=== PATIENT | male | born 1965 | race Two or more races ===

== ENCOUNTER 2023-06-14 17:55 | Inpatient (IN) | payer OTHER ==
[2023-06-14 18:44] VITALS: BMI 25.0
[2023-06-14] MEDS ORDERED: NICOTINE POLACRILEX 2 MG GUM BUC PRN (19:21)
[2023-06-14] MEDS ORDERED: ACETAMINOPHEN 325 MG TABLET (FP) PO PRN (19:21)
[2023-06-14] MEDS ORDERED: IBUPROFEN 400 MG TABLET (FP) PO PRN (19:21)
[2023-06-14] MEDS ORDERED: NALOXONE HCL 0.4 MG/ML VIAL IM PRN (19:21)
[2023-06-14] MEDS ORDERED: NALOXONE HCL (KLOXXADO) 8 MG SPRAY NS PRN (19:21)
[2023-06-14] MEDS ORDERED: POLYETHYLENE GLYCOL (HEALTHYLAX) 3350 17 GM PACKET PO PRN (19:21)
[2023-06-14] MEDS ORDERED: MAGNESIUM HYDROX 2400MG/30ML ORAL SUSPENSION 30 ML CUP PO PRN (19:21)
[2023-06-14] MEDS ORDERED: guaiFENesin 600 MG TABLET.ER (FP) PO PRN (19:21)
[2023-06-14] MEDS ORDERED: LOPERAMIDE HCL 2 MG CAPSULE PO PRN (19:21)
[2023-06-14] MEDS ORDERED: BENZOCAINE/MENTHOL (CHLORASEPTIC ) LOZENGE MM PRN (19:21)
[2023-06-14] MEDS ORDERED: COLLOIDAL OATMEAL 1 BAR EACH TP PRN (19:21)
[2023-06-14] MEDS ORDERED: MAG HYDROX/AL HYDROX/SIMETH 30 ML UNIT-DOSE CUP PO PRN (19:21)
[2023-06-14] MEDS ORDERED: BENZONATATE 200 MG CAPSULE PO PRN (19:21)
[2023-06-14] MEDS ORDERED: TUBERCULIN PPD 5 TU/0.1ML SYRINGE (IN PATIENT USE ONLY) ID ONE (23:23)
[2023-06-14] MEDS ORDERED: TUBERCULIN PPD 5 TU/0.1ML VIAL ID ONE (23:42)
[2023-06-14] MEDS: MELATONIN 5 MG TABLETS PO SCH (23:53)
[2023-06-14] MEDS: THIAMINE HCL 100 MG TABLET (FP) PO SCH (23:53)
[2023-06-15] MEDS ORDERED: cloNIDine HCL 0.1 MG TABLET PO ONE (06:25)
[2023-06-15] MEDS: INSULIN ASPART SLIDING SCALE (NOVOLOG) 1 VIAL SQ SCH ×2 (06:51→16:49)
[2023-06-15] MEDS: hydrOXYzine PAMOATE 25 MG CAPSULE (FP) PO PRN (06:53)
[2023-06-15] MEDS ORDERED: methaDONE HCL 10 MG TABLET PO SCH (09:00)
[2023-06-15] MEDS ORDERED: LISINOPRIL 20 MG TABLET PO SCH (10:00)
[2023-06-15] MEDS: LISINOPRIL 10 MG TABLET PO SCH (10:25)
[2023-06-15] MEDS: PRENATAL VITAMINS W/ FOLIC ACID TABLET (FP) PO SCH (10:25)
[2023-06-15] MEDS ORDERED: NICOTINE POLACRILEX 4 MG GUM BUC PRN (10:27)
[2023-06-15] MEDS: methaDONE 80 MG, methaDONE 20 MG PO SCH (10:27)
[2023-06-15] MEDS ORDERED: BACLOFEN 10 MG TABLET (FP) PO SCH (10:28)
[2023-06-15] MEDS: NICOTINE 21 MG/24 HOURS TOPICAL PATCH TD SCH (10:29)
[2023-06-15 10:44] LABS: HEMOGLOBIN 13.1 GM/dL (11.7-16.9); MCH 29.7 pg (25.7-33.7); MCHC 33.6 g/dl (32.0-35.9); MEAN CELL VOLUME 88.5 fl (80-96); MEAN PLT VOLUME 8.4 fl (7.5-11.1); PLATELET COUNT 217 10^3/uL (134-434); RBC 4.41 M/mm3 (4.00-5.60); WHITE BLOOD COUNT 4.5 K/mm3 (4.0-10.0)
[2023-06-15] MEDS: metFORMIN HCL 500 MG TABLET (FP) PO SCH ×2 (11:08→16:50)
[2023-06-15 11:20] LABS: CHLORIDE 107 mmol/L (98-107); SODIUM 140 mmol/L (136-145)
[2023-06-15 11:32] LABS: CALCIUM 8.4 mg/dL (8.5-10.1)
[2023-06-15 11:33] LABS: ALBUMIN 3.3 g/dl (3.4-5.0); ANION GAP 4 mmol/L (4-13); BLOOD UREA NITROGEN 10.7 mg/dL (7-18); CO2 29 mmol/L (21-32); GLUCOSE,RANDOM 79 mg/dL (74-106)
[2023-06-15 11:37] LABS: CREATININE 0.6 mg/dL (0.55-1.3); SGOT/AST 37 U/L (15-37); SGPT/ALT 26 U/L (13-61)
[2023-06-15 11:38] LABS: ALK PHOS 102 U/L (45-117); BILIRUBIN,TOTAL 0.7 mg/dL (0.2-1); TOT PROT 7.5 g/dl (6.4-8.2)
[2023-06-15] MEDS: cloNIDine HCL 0.1 MG TABLET PO SCH ×2 (12:02→21:22)
[2023-06-15 21:16] LABS: URINE APPEARANCE CLOUDY; URINE BILIRUBIN 1+ (NEGATIVE); URINE COLOR DK YELLOW; URINE GLUCOSE (UA) NEGATIVE (NEGATIVE); URINE KETONE TRACE (NEGATIVE); URINE LEUK ESTERASE NEGATIVE (NEGATIVE); URINE NITRITE NEGATIVE (NEGATIVE); URINE PROTEIN NEGATIVE (NEGATIVE)
[2023-06-15] MEDS: MELATONIN 5 MG TABLETS PO SCH (21:21)
[2023-06-15] MEDS: THIAMINE HCL 100 MG TABLET (FP) PO SCH (21:21)
[2023-06-16] MEDS: metFORMIN HCL 500 MG TABLET (FP) PO SCH ×2 (06:09→16:36)
[2023-06-16] MEDS: methaDONE 80 MG, methaDONE 20 MG PO SCH (06:09)
[2023-06-16] MEDS: INSULIN ASPART SLIDING SCALE (NOVOLOG) 1 VIAL SQ SCH ×2 (06:11→16:46)
[2023-06-16] MEDS: LISINOPRIL 10 MG TABLET PO SCH (09:46)
[2023-06-16] MEDS: NICOTINE 21 MG/24 HOURS TOPICAL PATCH TD SCH (09:46)
[2023-06-16] MEDS: cloNIDine HCL 0.1 MG TABLET PO SCH ×2 (09:46→21:35)
[2023-06-16] MEDS: PRENATAL VITAMINS W/ FOLIC ACID TABLET (FP) PO SCH (09:46)
[2023-06-16] MEDS ORDERED: LISINOPRIL 10 MG TABLET PO ONE (12:30)
[2023-06-16] MEDS: MELATONIN 5 MG TABLETS PO SCH (21:33)
[2023-06-16] MEDS: THIAMINE HCL 100 MG TABLET (FP) PO SCH (21:34)
[2023-06-17] MEDS: methaDONE 80 MG, methaDONE 20 MG PO SCH (06:06)
[2023-06-17] MEDS: metFORMIN HCL 500 MG TABLET (FP) PO SCH ×2 (06:06→16:47)
[2023-06-17] MEDS: INSULIN ASPART SLIDING SCALE (NOVOLOG) 1 VIAL SQ SCH ×2 (06:08→16:47)
[2023-06-17] MEDS: cloNIDine HCL 0.1 MG TABLET PO SCH ×2 (10:55→21:10)
[2023-06-17] MEDS: NICOTINE 21 MG/24 HOURS TOPICAL PATCH TD SCH (10:55)
[2023-06-17] MEDS: PRENATAL VITAMINS W/ FOLIC ACID TABLET (FP) PO SCH (10:55)
[2023-06-17] MEDS: LISINOPRIL 10 MG TABLET PO SCH (10:55)
[2023-06-17] MEDS: MELATONIN 5 MG TABLETS PO SCH (21:10)
[2023-06-17] MEDS: THIAMINE HCL 100 MG TABLET (FP) PO SCH (21:10)
[2023-06-18] MEDS: metFORMIN HCL 500 MG TABLET (FP) PO SCH ×2 (06:06→16:27)
[2023-06-18] MEDS: methaDONE 80 MG, methaDONE 20 MG PO SCH (06:06)
[2023-06-18] MEDS: INSULIN ASPART SLIDING SCALE (NOVOLOG) 1 VIAL SQ SCH ×2 (06:07→16:28)
[2023-06-18] MEDS: PRENATAL VITAMINS W/ FOLIC ACID TABLET (FP) PO SCH (09:38)
[2023-06-18] MEDS: NICOTINE 21 MG/24 HOURS TOPICAL PATCH TD SCH (09:39)
[2023-06-18] MEDS: cloNIDine HCL 0.1 MG TABLET PO SCH ×2 (09:39→21:25)
[2023-06-18] MEDS: LISINOPRIL 10 MG TABLET PO SCH (09:39)
[2023-06-18] MEDS: MELATONIN 5 MG TABLETS PO SCH (21:25)
[2023-06-18] MEDS: THIAMINE HCL 100 MG TABLET (FP) PO SCH (21:25)
[2023-06-18] MEDS: IBUPROFEN 600 MG TABLET (FP) PO PRN (21:26)
[2023-06-19] MEDS: metFORMIN HCL 500 MG TABLET (FP) PO SCH ×2 (06:13→16:27)
[2023-06-19] MEDS: methaDONE 80 MG, methaDONE 20 MG PO SCH (06:14)
[2023-06-19] MEDS: hydrOXYzine PAMOATE 25 MG CAPSULE (FP) PO PRN (06:15)
[2023-06-19] MEDS: INSULIN ASPART SLIDING SCALE (NOVOLOG) 1 VIAL SQ SCH ×2 (06:15→16:28)
[2023-06-19] MEDS: NICOTINE 21 MG/24 HOURS TOPICAL PATCH TD SCH (10:05)
[2023-06-19] MEDS: PRENATAL VITAMINS W/ FOLIC ACID TABLET (FP) PO SCH (10:05)
[2023-06-19] MEDS: LISINOPRIL 10 MG TABLET PO SCH (10:05)
[2023-06-19] MEDS: IBUPROFEN 600 MG TABLET (FP) PO PRN (16:27)
[2023-06-19] MEDS: MELATONIN 5 MG TABLETS PO SCH (21:09)
[2023-06-19] MEDS: THIAMINE HCL 100 MG TABLET (FP) PO SCH (21:09)
[2023-06-20] MEDS: methaDONE 80 MG, methaDONE 20 MG PO SCH (06:30)
[2023-06-20] MEDS: metFORMIN HCL 500 MG TABLET (FP) PO SCH ×2 (06:30→16:28)
[2023-06-20] MEDS: IBUPROFEN 600 MG TABLET (FP) PO PRN ×2 (06:31→21:20)
[2023-06-20] MEDS: NICOTINE 21 MG/24 HOURS TOPICAL PATCH TD SCH (09:49)
[2023-06-20] MEDS: LISINOPRIL 10 MG TABLET PO SCH (09:49)
[2023-06-20] MEDS: PRENATAL VITAMINS W/ FOLIC ACID TABLET (FP) PO SCH (09:49)
[2023-06-20] MEDS: INSULIN ASPART SLIDING SCALE (NOVOLOG) 1 VIAL SQ SCH ×2 (10:05→16:29)
[2023-06-20] MEDS: MELATONIN 5 MG TABLETS PO SCH (21:20)
[2023-06-20] MEDS: THIAMINE HCL 100 MG TABLET (FP) PO SCH (21:20)
[2023-06-21] MEDS: methaDONE 80 MG, methaDONE 20 MG PO SCH (06:14)
[2023-06-21] MEDS: INSULIN ASPART SLIDING SCALE (NOVOLOG) 1 VIAL SQ SCH ×2 (06:14→16:27)
[2023-06-21] MEDS: IBUPROFEN 600 MG TABLET (FP) PO PRN ×2 (06:15→21:16)
[2023-06-21] MEDS: metFORMIN HCL 500 MG TABLET (FP) PO SCH ×2 (06:15→16:25)
[2023-06-21] MEDS: hydrOXYzine PAMOATE 25 MG CAPSULE (FP) PO PRN (06:16)
[2023-06-21] MEDS: PRENATAL VITAMINS W/ FOLIC ACID TABLET (FP) PO SCH (10:20)
[2023-06-21] MEDS: NICOTINE 21 MG/24 HOURS TOPICAL PATCH TD SCH (10:21)
[2023-06-21] MEDS: LISINOPRIL 10 MG TABLET PO SCH (10:21)
[2023-06-21] MEDS: LIDOCAINE 4% PATCH TP SCH (16:27)
[2023-06-21] MEDS: MELATONIN 5 MG TABLETS PO SCH (21:15)
[2023-06-21] MEDS: LIDOCAINE PATCH REMOVAL MC SCH (21:15)
[2023-06-21] MEDS: THIAMINE HCL 100 MG TABLET (FP) PO SCH (21:15)
[2023-06-21] MEDS: BACLOFEN 10 MG TABLET (FP) PO SCH (21:16)
[2023-06-22] MEDS: metFORMIN HCL 500 MG TABLET (FP) PO SCH ×2 (06:29→16:35)
[2023-06-22] MEDS: methaDONE 80 MG, methaDONE 20 MG PO SCH (06:29)
[2023-06-22] MEDS: INSULIN ASPART SLIDING SCALE (NOVOLOG) 1 VIAL SQ SCH ×2 (06:44→16:47)
[2023-06-22] MEDS: PRENATAL VITAMINS W/ FOLIC ACID TABLET (FP) PO SCH (09:35)
[2023-06-22] MEDS: BACLOFEN 10 MG TABLET (FP) PO SCH ×2 (09:35→21:28)
[2023-06-22] MEDS: LISINOPRIL 10 MG TABLET PO SCH (09:35)
[2023-06-22] MEDS: LIDOCAINE 4% PATCH TP SCH (09:37)
[2023-06-22] MEDS: NICOTINE 21 MG/24 HOURS TOPICAL PATCH TD SCH (09:37)
[2023-06-22] MEDS: LIDOCAINE PATCH REMOVAL MC SCH (21:27)
[2023-06-22] MEDS: IBUPROFEN 600 MG TABLET (FP) PO PRN (21:28)
[2023-06-22] MEDS: THIAMINE HCL 100 MG TABLET (FP) PO SCH (21:28)
[2023-06-22] MEDS: MELATONIN 5 MG TABLETS PO SCH (21:28)
[2023-06-23] MEDS: methaDONE 80 MG, methaDONE 20 MG PO SCH (06:50)
[2023-06-23] MEDS: metFORMIN HCL 500 MG TABLET (FP) PO SCH ×2 (06:51→16:23)
[2023-06-23] MEDS: hydrOXYzine PAMOATE 25 MG CAPSULE (FP) PO PRN (06:51)
[2023-06-23] MEDS: INSULIN ASPART SLIDING SCALE (NOVOLOG) 1 VIAL SQ SCH ×2 (06:56→16:23)
[2023-06-23] MEDS: NICOTINE 21 MG/24 HOURS TOPICAL PATCH TD SCH (09:45)
[2023-06-23] MEDS: PRENATAL VITAMINS W/ FOLIC ACID TABLET (FP) PO SCH (09:45)
[2023-06-23] MEDS: LISINOPRIL 10 MG TABLET PO SCH (09:45)
[2023-06-23] MEDS: BACLOFEN 10 MG TABLET (FP) PO SCH ×2 (09:46→21:10)
[2023-06-23] MEDS: LIDOCAINE 4% PATCH TP SCH (09:46)
[2023-06-23] MEDS: IBUPROFEN 600 MG TABLET (FP) PO PRN ×2 (09:47→21:11)
[2023-06-23] MEDS: MELATONIN 5 MG TABLETS PO SCH (21:10)
[2023-06-23] MEDS: THIAMINE HCL 100 MG TABLET (FP) PO SCH (21:10)
[2023-06-23] MEDS: LIDOCAINE PATCH REMOVAL MC SCH (21:36)
[2023-06-24] MEDS: methaDONE 80 MG, methaDONE 20 MG PO SCH (06:27)
[2023-06-24] MEDS: metFORMIN HCL 500 MG TABLET (FP) PO SCH ×2 (06:29→16:31)
[2023-06-24] MEDS: hydrOXYzine PAMOATE 25 MG CAPSULE (FP) PO PRN (06:29)
[2023-06-24] MEDS: INSULIN ASPART SLIDING SCALE (NOVOLOG) 1 VIAL SQ SCH ×2 (06:34→16:32)
[2023-06-24] MEDS: NICOTINE 21 MG/24 HOURS TOPICAL PATCH TD SCH (10:07)
[2023-06-24] MEDS: PRENATAL VITAMINS W/ FOLIC ACID TABLET (FP) PO SCH (10:07)
[2023-06-24] MEDS: LISINOPRIL 10 MG TABLET PO SCH (10:08)
[2023-06-24] MEDS: LIDOCAINE 4% PATCH TP SCH (10:08)
[2023-06-24] MEDS: BACLOFEN 10 MG TABLET (FP) PO SCH ×2 (10:08→21:31)
[2023-06-24] MEDS: IBUPROFEN 600 MG TABLET (FP) PO PRN (10:09)
[2023-06-24] MEDS: THIAMINE HCL 100 MG TABLET (FP) PO SCH (21:31)
[2023-06-24] MEDS: MELATONIN 5 MG TABLETS PO SCH (21:31)
[2023-06-24] MEDS: LIDOCAINE PATCH REMOVAL MC SCH (21:32)
[2023-06-25] MEDS: INSULIN ASPART SLIDING SCALE (NOVOLOG) 1 VIAL SQ SCH ×2 (06:58→16:58)
[2023-06-25] MEDS: methaDONE 80 MG, methaDONE 20 MG PO SCH (06:58)
[2023-06-25] MEDS: metFORMIN HCL 500 MG TABLET (FP) PO SCH ×2 (06:58→16:57)
[2023-06-25] MEDS: LISINOPRIL 10 MG TABLET PO SCH (09:57)
[2023-06-25] MEDS: LIDOCAINE 4% PATCH TP SCH (09:57)
[2023-06-25] MEDS: NICOTINE 21 MG/24 HOURS TOPICAL PATCH TD SCH (09:57)
[2023-06-25] MEDS: PRENATAL VITAMINS W/ FOLIC ACID TABLET (FP) PO SCH (09:57)
[2023-06-25] MEDS: BACLOFEN 10 MG TABLET (FP) PO SCH ×2 (10:34→21:07)
[2023-06-25] MEDS: LIDOCAINE PATCH REMOVAL MC SCH (21:07)
[2023-06-25] MEDS: THIAMINE HCL 100 MG TABLET (FP) PO SCH (21:08)
[2023-06-25] MEDS: MELATONIN 5 MG TABLETS PO SCH (21:08)
[2023-06-25] MEDS: IBUPROFEN 600 MG TABLET (FP) PO PRN (21:08)
[2023-06-26] MEDS: methaDONE 80 MG, methaDONE 20 MG PO SCH (06:20)
[2023-06-26] MEDS: metFORMIN HCL 500 MG TABLET (FP) PO SCH ×2 (06:21→16:18)
[2023-06-26] MEDS: hydrOXYzine PAMOATE 25 MG CAPSULE (FP) PO PRN (06:21)
[2023-06-26] MEDS: INSULIN ASPART SLIDING SCALE (NOVOLOG) 1 VIAL SQ SCH ×2 (08:38→16:19)
[2023-06-26] MEDS: LIDOCAINE 4% PATCH TP SCH (09:36)
[2023-06-26] MEDS: BACLOFEN 10 MG TABLET (FP) PO SCH ×2 (09:36→21:31)
[2023-06-26] MEDS: NICOTINE 21 MG/24 HOURS TOPICAL PATCH TD SCH (09:36)
[2023-06-26] MEDS: LISINOPRIL 10 MG TABLET PO SCH (09:36)
[2023-06-26] MEDS: PRENATAL VITAMINS W/ FOLIC ACID TABLET (FP) PO SCH (09:36)
[2023-06-26] MEDS: IBUPROFEN 600 MG TABLET (FP) PO PRN (21:31)
[2023-06-26] MEDS: LIDOCAINE PATCH REMOVAL MC SCH (21:31)
[2023-06-26] MEDS: MELATONIN 5 MG TABLETS PO SCH (21:31)
[2023-06-26] MEDS: THIAMINE HCL 100 MG TABLET (FP) PO SCH (21:31)
[2023-06-27] MEDS: metFORMIN HCL 500 MG TABLET (FP) PO SCH ×2 (06:08→16:17)
[2023-06-27] MEDS: methaDONE 80 MG, methaDONE 20 MG PO SCH (06:09)
[2023-06-27] MEDS: INSULIN ASPART SLIDING SCALE (NOVOLOG) 1 VIAL SQ SCH ×2 (06:49→16:18)
[2023-06-27] MEDS: LISINOPRIL 10 MG TABLET PO SCH (10:16)
[2023-06-27] MEDS: LIDOCAINE 4% PATCH TP SCH (10:16)
[2023-06-27] MEDS: NICOTINE 21 MG/24 HOURS TOPICAL PATCH TD SCH (10:16)
[2023-06-27] MEDS: BACLOFEN 10 MG TABLET (FP) PO SCH ×2 (10:17→21:23)
[2023-06-27] MEDS: PRENATAL VITAMINS W/ FOLIC ACID TABLET (FP) PO SCH (10:17)
[2023-06-27] MEDS: MELATONIN 5 MG TABLETS PO SCH (21:23)
[2023-06-27] MEDS: IBUPROFEN 600 MG TABLET (FP) PO PRN (21:23)
[2023-06-27] MEDS: THIAMINE HCL 100 MG TABLET (FP) PO SCH (21:23)
[2023-06-27] MEDS: LIDOCAINE PATCH REMOVAL MC SCH (21:24)
[2023-06-28] MEDS: methaDONE 80 MG, methaDONE 20 MG PO SCH (06:11)
[2023-06-28] MEDS: hydrOXYzine PAMOATE 25 MG CAPSULE (FP) PO PRN (06:12)
[2023-06-28] MEDS: metFORMIN HCL 500 MG TABLET (FP) PO SCH ×2 (06:12→16:19)
[2023-06-28] MEDS: INSULIN ASPART SLIDING SCALE (NOVOLOG) 1 VIAL SQ SCH ×2 (06:41→16:20)
[2023-06-28] MEDS: LISINOPRIL 10 MG TABLET PO SCH (09:39)
[2023-06-28] MEDS: BACLOFEN 10 MG TABLET (FP) PO SCH ×2 (09:39→21:09)
[2023-06-28] MEDS: LIDOCAINE 4% PATCH TP SCH (09:39)
[2023-06-28] MEDS: PRENATAL VITAMINS W/ FOLIC ACID TABLET (FP) PO SCH (09:39)
[2023-06-28] MEDS: NICOTINE 21 MG/24 HOURS TOPICAL PATCH TD SCH (09:40)
[2023-06-28] MEDS ORDERED: LISINOPRIL 10 MG TABLET PO ONE (11:15)
[2023-06-28] MEDS: IBUPROFEN 600 MG TABLET (FP) PO PRN (21:09)
[2023-06-28] MEDS: THIAMINE HCL 100 MG TABLET (FP) PO SCH (21:09)
[2023-06-28] MEDS: MELATONIN 5 MG TABLETS PO SCH (21:09)
[2023-06-28] MEDS: LIDOCAINE PATCH REMOVAL MC SCH (21:10)
[2023-06-29] MEDS: methaDONE 80 MG, methaDONE 20 MG PO SCH (06:32)
[2023-06-29] MEDS: metFORMIN HCL 500 MG TABLET (FP) PO SCH ×2 (06:35→16:22)
[2023-06-29] MEDS: hydrOXYzine PAMOATE 25 MG CAPSULE (FP) PO PRN (06:35)
[2023-06-29] MEDS: INSULIN ASPART SLIDING SCALE (NOVOLOG) 1 VIAL SQ SCH ×2 (07:29→16:22)
[2023-06-29] MEDS: BACLOFEN 10 MG TABLET (FP) PO SCH ×2 (10:39→21:20)
[2023-06-29] MEDS: PRENATAL VITAMINS W/ FOLIC ACID TABLET (FP) PO SCH (10:39)
[2023-06-29] MEDS: LISINOPRIL 20 MG TABLET PO SCH (10:39)
[2023-06-29] MEDS: NICOTINE 21 MG/24 HOURS TOPICAL PATCH TD SCH (10:39)
[2023-06-29] MEDS: LIDOCAINE 4% PATCH TP SCH (10:39)
[2023-06-29] MEDS: IBUPROFEN 600 MG TABLET (FP) PO PRN ×2 (10:41→21:20)
[2023-06-29] MEDS: THIAMINE HCL 100 MG TABLET (FP) PO SCH (21:20)
[2023-06-29] MEDS: MELATONIN 5 MG TABLETS PO SCH (21:20)
[2023-06-29] MEDS: LIDOCAINE PATCH REMOVAL MC SCH (21:21)
[2023-06-30] MEDS: metFORMIN HCL 500 MG TABLET (FP) PO SCH ×2 (06:58→16:23)
[2023-06-30] MEDS: methaDONE 80 MG, methaDONE 20 MG PO SCH (06:58)
[2023-06-30] MEDS: INSULIN ASPART SLIDING SCALE (NOVOLOG) 1 VIAL SQ SCH ×2 (07:02→16:23)
[2023-06-30] MEDS: amLODIPine BESYLATE 2.5 MG TABLET (FP) PO SCH (09:46)
[2023-06-30] MEDS: PRENATAL VITAMINS W/ FOLIC ACID TABLET (FP) PO SCH (09:46)
[2023-06-30] MEDS: LISINOPRIL 20 MG TABLET PO SCH (09:46)
[2023-06-30] MEDS: NICOTINE 21 MG/24 HOURS TOPICAL PATCH TD SCH (09:46)
[2023-06-30] MEDS: BACLOFEN 10 MG TABLET (FP) PO SCH ×2 (09:46→21:20)
[2023-06-30] MEDS: LIDOCAINE 4% PATCH TP SCH (09:46)
[2023-06-30] MEDS: THIAMINE HCL 100 MG TABLET (FP) PO SCH (21:20)
[2023-06-30] MEDS: LIDOCAINE PATCH REMOVAL MC SCH (21:20)
[2023-06-30] MEDS: MELATONIN 5 MG TABLETS PO SCH (21:20)
[2023-06-30] MEDS: IBUPROFEN 600 MG TABLET (FP) PO PRN (21:21)
[2023-07-01] MEDS: metFORMIN HCL 500 MG TABLET (FP) PO SCH ×2 (06:09→16:10)
[2023-07-01] MEDS: methaDONE 80 MG, methaDONE 20 MG PO SCH (06:09)
[2023-07-01] MEDS: INSULIN ASPART SLIDING SCALE (NOVOLOG) 1 VIAL SQ SCH ×2 (06:10→16:11)
[2023-07-01] MEDS: LIDOCAINE 4% PATCH TP SCH (10:41)
[2023-07-01] MEDS: BACLOFEN 10 MG TABLET (FP) PO SCH ×2 (10:41→21:16)
[2023-07-01] MEDS: amLODIPine BESYLATE 2.5 MG TABLET (FP) PO SCH (10:41)
[2023-07-01] MEDS: LISINOPRIL 20 MG TABLET PO SCH (10:41)
[2023-07-01] MEDS: PRENATAL VITAMINS W/ FOLIC ACID TABLET (FP) PO SCH (10:41)
[2023-07-01] MEDS: NICOTINE 21 MG/24 HOURS TOPICAL PATCH TD SCH (10:46)
[2023-07-01] MEDS: THIAMINE HCL 100 MG TABLET (FP) PO SCH (21:16)
[2023-07-01] MEDS: MELATONIN 5 MG TABLETS PO SCH (21:16)
[2023-07-01] MEDS: LIDOCAINE PATCH REMOVAL MC SCH (21:17)
[2023-07-02] MEDS: methaDONE 80 MG, methaDONE 20 MG PO SCH (06:25)
[2023-07-02] MEDS: INSULIN ASPART SLIDING SCALE (NOVOLOG) 1 VIAL SQ SCH ×2 (06:25→17:10)
[2023-07-02] MEDS: hydrOXYzine PAMOATE 25 MG CAPSULE (FP) PO PRN (06:26)
[2023-07-02] MEDS: metFORMIN HCL 500 MG TABLET (FP) PO SCH ×2 (06:26→17:09)
[2023-07-02] MEDS: PRENATAL VITAMINS W/ FOLIC ACID TABLET (FP) PO SCH (09:41)
[2023-07-02] MEDS: BACLOFEN 10 MG TABLET (FP) PO SCH ×2 (09:41→21:15)
[2023-07-02] MEDS: LISINOPRIL 20 MG TABLET PO SCH (09:42)
[2023-07-02] MEDS: LIDOCAINE 4% PATCH TP SCH (09:42)
[2023-07-02] MEDS: NICOTINE 21 MG/24 HOURS TOPICAL PATCH TD SCH (09:42)
[2023-07-02] MEDS ORDERED: amLODIPine BESYLATE 2.5 MG TABLET (FP) PO SCH (10:00)
[2023-07-02] MEDS ORDERED: amLODIPine BESYLATE 5 MG TABLET (FP) PO ONE (10:45)
[2023-07-02] MEDS ORDERED: amLODIPine BESYLATE 10 MG TABLET (FP) PO SCH (10:45)
[2023-07-02] MEDS: THIAMINE HCL 100 MG TABLET (FP) PO SCH (21:15)
[2023-07-02] MEDS: LIDOCAINE PATCH REMOVAL MC SCH (21:15)
[2023-07-02] MEDS: IBUPROFEN 600 MG TABLET (FP) PO PRN (21:15)
[2023-07-02] MEDS: MELATONIN 5 MG TABLETS PO SCH (21:15)
[2023-07-03] MEDS: methaDONE 80 MG, methaDONE 20 MG PO SCH (06:05)
[2023-07-03] MEDS: metFORMIN HCL 500 MG TABLET (FP) PO SCH ×2 (06:06→16:25)
[2023-07-03] MEDS: hydrOXYzine PAMOATE 25 MG CAPSULE (FP) PO PRN (06:07)
[2023-07-03] MEDS: INSULIN ASPART SLIDING SCALE (NOVOLOG) 1 VIAL SQ SCH ×2 (06:24→16:26)
[2023-07-03] MEDS: amLODIPine BESYLATE 10 MG TABLET (FP) PO SCH (09:49)
[2023-07-03] MEDS: NICOTINE 21 MG/24 HOURS TOPICAL PATCH TD SCH (09:49)
[2023-07-03] MEDS: PRENATAL VITAMINS W/ FOLIC ACID TABLET (FP) PO SCH (09:49)
[2023-07-03] MEDS: LISINOPRIL 20 MG TABLET PO SCH (09:49)
[2023-07-03] MEDS: BACLOFEN 10 MG TABLET (FP) PO SCH ×2 (09:49→21:01)
[2023-07-03] MEDS: LIDOCAINE 4% PATCH TP SCH (09:58)
[2023-07-03] MEDS: THIAMINE HCL 100 MG TABLET (FP) PO SCH (21:01)
[2023-07-03] MEDS: MELATONIN 5 MG TABLETS PO SCH (21:01)
[2023-07-03] MEDS: IBUPROFEN 600 MG TABLET (FP) PO PRN (21:01)
[2023-07-03] MEDS: LIDOCAINE PATCH REMOVAL MC SCH (21:02)
[2023-07-04] MEDS: methaDONE 80 MG, methaDONE 20 MG PO SCH (06:20)
[2023-07-04] MEDS: metFORMIN HCL 500 MG TABLET (FP) PO SCH ×2 (06:21→16:25)
[2023-07-04] MEDS: hydrOXYzine PAMOATE 25 MG CAPSULE (FP) PO PRN (06:21)
[2023-07-04] MEDS: INSULIN ASPART SLIDING SCALE (NOVOLOG) 1 VIAL SQ SCH ×2 (06:23→16:26)
[2023-07-04] MEDS: amLODIPine BESYLATE 10 MG TABLET (FP) PO SCH (09:40)
[2023-07-04] MEDS: LISINOPRIL 20 MG TABLET PO SCH (09:40)
[2023-07-04] MEDS: IBUPROFEN 600 MG TABLET (FP) PO PRN ×2 (09:40→21:16)
[2023-07-04] MEDS: PRENATAL VITAMINS W/ FOLIC ACID TABLET (FP) PO SCH (09:40)
[2023-07-04] MEDS: NICOTINE 21 MG/24 HOURS TOPICAL PATCH TD SCH (09:40)
[2023-07-04] MEDS: BACLOFEN 10 MG TABLET (FP) PO SCH ×2 (09:40→21:16)
[2023-07-04] MEDS: LIDOCAINE 4% PATCH TP SCH (09:42)
[2023-07-04] MEDS: MELATONIN 5 MG TABLETS PO SCH (21:16)
[2023-07-04] MEDS: THIAMINE HCL 100 MG TABLET (FP) PO SCH (21:16)
[2023-07-04] MEDS: LIDOCAINE PATCH REMOVAL MC SCH (21:17)
[2023-07-05] MEDS: methaDONE 80 MG, methaDONE 20 MG PO SCH (05:51)
[2023-07-05] MEDS: metFORMIN HCL 500 MG TABLET (FP) PO SCH ×2 (06:13→16:26)
[2023-07-05] MEDS: INSULIN ASPART SLIDING SCALE (NOVOLOG) 1 VIAL SQ SCH ×2 (06:14→16:27)
[2023-07-05] MEDS: LISINOPRIL 20 MG TABLET PO SCH (09:55)
[2023-07-05] MEDS: PRENATAL VITAMINS W/ FOLIC ACID TABLET (FP) PO SCH (09:55)
[2023-07-05] MEDS: BACLOFEN 10 MG TABLET (FP) PO SCH ×2 (09:55→21:00)
[2023-07-05] MEDS: LIDOCAINE 4% PATCH TP SCH (09:55)
[2023-07-05] MEDS: NICOTINE 21 MG/24 HOURS TOPICAL PATCH TD SCH (09:55)
[2023-07-05] MEDS: amLODIPine BESYLATE 10 MG TABLET (FP) PO SCH (09:55)
[2023-07-05] MEDS: IBUPROFEN 600 MG TABLET (FP) PO PRN ×2 (09:56→21:00)
[2023-07-05] MEDS: LIDOCAINE PATCH REMOVAL MC SCH (21:00)
[2023-07-05] MEDS: THIAMINE HCL 100 MG TABLET (FP) PO SCH (21:00)
[2023-07-05] MEDS: MELATONIN 5 MG TABLETS PO SCH (21:00)
[2023-07-06] MEDS: metFORMIN HCL 500 MG TABLET (FP) PO SCH ×2 (06:17→16:39)
[2023-07-06] MEDS: methaDONE 80 MG, methaDONE 20 MG PO SCH (06:17)
[2023-07-06] MEDS: IBUPROFEN 600 MG TABLET (FP) PO PRN ×2 (06:18→21:06)
[2023-07-06] MEDS: INSULIN ASPART SLIDING SCALE (NOVOLOG) 1 VIAL SQ SCH ×2 (06:25→16:37)
[2023-07-06] MEDS: LIDOCAINE 4% PATCH TP SCH (10:26)
[2023-07-06] MEDS: amLODIPine BESYLATE 10 MG TABLET (FP) PO SCH (10:27)
[2023-07-06] MEDS: PRENATAL VITAMINS W/ FOLIC ACID TABLET (FP) PO SCH (10:27)
[2023-07-06] MEDS: BACLOFEN 10 MG TABLET (FP) PO SCH ×2 (10:27→21:05)
[2023-07-06] MEDS: NICOTINE 21 MG/24 HOURS TOPICAL PATCH TD SCH (10:27)
[2023-07-06] MEDS: LISINOPRIL 20 MG TABLET PO SCH (10:27)
[2023-07-06] MEDS: MELATONIN 5 MG TABLETS PO SCH (21:05)
[2023-07-06] MEDS: LIDOCAINE PATCH REMOVAL MC SCH (21:05)
[2023-07-06] MEDS: THIAMINE HCL 100 MG TABLET (FP) PO SCH (21:05)
[2023-07-07] MEDS: methaDONE 80 MG, methaDONE 20 MG PO SCH (05:54)
[2023-07-07] MEDS: metFORMIN HCL 500 MG TABLET (FP) PO SCH ×2 (06:10→16:22)
[2023-07-07] MEDS: INSULIN ASPART SLIDING SCALE (NOVOLOG) 1 VIAL SQ SCH ×2 (06:10→16:23)
[2023-07-07] MEDS: LISINOPRIL 20 MG TABLET PO SCH (09:54)
[2023-07-07] MEDS: amLODIPine BESYLATE 10 MG TABLET (FP) PO SCH (09:55)
[2023-07-07] MEDS: NICOTINE 21 MG/24 HOURS TOPICAL PATCH TD SCH (09:55)
[2023-07-07] MEDS: LIDOCAINE 4% PATCH TP SCH (09:55)
[2023-07-07] MEDS: BACLOFEN 10 MG TABLET (FP) PO SCH ×2 (09:55→21:23)
[2023-07-07] MEDS: PRENATAL VITAMINS W/ FOLIC ACID TABLET (FP) PO SCH (09:55)
[2023-07-07] MEDS: THIAMINE HCL 100 MG TABLET (FP) PO SCH (21:23)
[2023-07-07] MEDS: IBUPROFEN 600 MG TABLET (FP) PO PRN (21:23)
[2023-07-07] MEDS: MELATONIN 5 MG TABLETS PO SCH (21:23)
[2023-07-07] MEDS: LIDOCAINE PATCH REMOVAL MC SCH (21:24)
[2023-07-08] MEDS: methaDONE 80 MG, methaDONE 20 MG PO SCH (05:55)
[2023-07-08] MEDS: hydrOXYzine PAMOATE 25 MG CAPSULE (FP) PO PRN (05:58)
[2023-07-08] MEDS: INSULIN ASPART SLIDING SCALE (NOVOLOG) 1 VIAL SQ SCH ×2 (06:33→16:17)
[2023-07-08] MEDS: metFORMIN HCL 500 MG TABLET (FP) PO SCH ×2 (06:33→16:16)
[2023-07-08] MEDS: LIDOCAINE 4% PATCH TP SCH (10:23)
[2023-07-08] MEDS: BACLOFEN 10 MG TABLET (FP) PO SCH ×2 (10:23→21:16)
[2023-07-08] MEDS: amLODIPine BESYLATE 10 MG TABLET (FP) PO SCH (10:23)
[2023-07-08] MEDS: PRENATAL VITAMINS W/ FOLIC ACID TABLET (FP) PO SCH (10:23)
[2023-07-08] MEDS: LISINOPRIL 20 MG TABLET PO SCH (10:24)
[2023-07-08] MEDS: NICOTINE 21 MG/24 HOURS TOPICAL PATCH TD SCH (10:24)
[2023-07-08] MEDS: THIAMINE HCL 100 MG TABLET (FP) PO SCH (21:16)
[2023-07-08] MEDS: IBUPROFEN 600 MG TABLET (FP) PO PRN (21:16)
[2023-07-08] MEDS: MELATONIN 5 MG TABLETS PO SCH (21:16)
[2023-07-08] MEDS: LIDOCAINE PATCH REMOVAL MC SCH (21:17)
[2023-07-09] MEDS: metFORMIN HCL 500 MG TABLET (FP) PO SCH ×2 (06:28→17:05)
[2023-07-09] MEDS: methaDONE 80 MG, methaDONE 20 MG PO SCH (06:28)
[2023-07-09] MEDS: INSULIN ASPART SLIDING SCALE (NOVOLOG) 1 VIAL SQ SCH ×2 (06:32→17:05)
[2023-07-09] MEDS: PRENATAL VITAMINS W/ FOLIC ACID TABLET (FP) PO SCH (10:31)
[2023-07-09] MEDS: amLODIPine BESYLATE 10 MG TABLET (FP) PO SCH (10:32)
[2023-07-09] MEDS: BACLOFEN 10 MG TABLET (FP) PO SCH ×2 (10:32→21:14)
[2023-07-09] MEDS: NICOTINE 21 MG/24 HOURS TOPICAL PATCH TD SCH (10:32)
[2023-07-09] MEDS: LISINOPRIL 20 MG TABLET PO SCH (10:33)
[2023-07-09] MEDS: LIDOCAINE 4% PATCH TP SCH (10:33)
[2023-07-09] MEDS: IBUPROFEN 600 MG TABLET (FP) PO PRN (21:14)
[2023-07-09] MEDS: THIAMINE HCL 100 MG TABLET (FP) PO SCH (21:14)
[2023-07-09] MEDS: MELATONIN 5 MG TABLETS PO SCH (21:14)
[2023-07-09] MEDS: LIDOCAINE PATCH REMOVAL MC SCH (21:15)
[2023-07-10] MEDS: methaDONE 80 MG, methaDONE 20 MG PO SCH (06:04)
[2023-07-10] MEDS: metFORMIN HCL 500 MG TABLET (FP) PO SCH ×2 (06:04→16:30)
[2023-07-10] MEDS: INSULIN ASPART SLIDING SCALE (NOVOLOG) 1 VIAL SQ SCH ×2 (06:27→16:31)
[2023-07-10] MEDS: LIDOCAINE 4% PATCH TP SCH (10:10)
[2023-07-10] MEDS: NICOTINE 21 MG/24 HOURS TOPICAL PATCH TD SCH (10:11)
[2023-07-10] MEDS: LISINOPRIL 20 MG TABLET PO SCH (10:11)
[2023-07-10] MEDS: BACLOFEN 10 MG TABLET (FP) PO SCH ×2 (10:11→21:04)
[2023-07-10] MEDS: PRENATAL VITAMINS W/ FOLIC ACID TABLET (FP) PO SCH (10:11)
[2023-07-10] MEDS: amLODIPine BESYLATE 10 MG TABLET (FP) PO SCH (10:11)
[2023-07-10] MEDS: MELATONIN 5 MG TABLETS PO SCH (21:04)
[2023-07-10] MEDS: THIAMINE HCL 100 MG TABLET (FP) PO SCH (21:04)
[2023-07-10] MEDS: IBUPROFEN 600 MG TABLET (FP) PO PRN (21:04)
[2023-07-10] MEDS: LIDOCAINE PATCH REMOVAL MC SCH (21:04)
[2023-07-11] MEDS: methaDONE 80 MG, methaDONE 20 MG PO SCH (06:24)
[2023-07-11] MEDS: INSULIN ASPART SLIDING SCALE (NOVOLOG) 1 VIAL SQ SCH (06:26)
[2023-07-11] MEDS: metFORMIN HCL 500 MG TABLET (FP) PO SCH (06:26)
[2023-07-11 07:20] VITALS: TEMP 98.2
[2023-07-11 09:15] VITALS: BP 126/77; PULSE 69; RESP 16
[2023-07-11] MEDS: NICOTINE 21 MG/24 HOURS TOPICAL PATCH TD SCH (09:24)
[2023-07-11] MEDS: amLODIPine BESYLATE 10 MG TABLET (FP) PO SCH (09:24)
[2023-07-11] MEDS: PRENATAL VITAMINS W/ FOLIC ACID TABLET (FP) PO SCH (09:24)
[2023-07-11] MEDS: LISINOPRIL 20 MG TABLET PO SCH (09:24)
[2023-07-11] MEDS: BACLOFEN 10 MG TABLET (FP) PO SCH (09:24)
[2023-07-11] MEDS: LIDOCAINE 4% PATCH TP SCH (09:25)
== END 2023-07-11 10:12 | disposition home or self-care (01) | DRG 772 ==
LOC: YASAS 17:55 → Y3W 23:14
PROVIDERS: ADMIT Allergy & Immunology; ATTEND Psychiatry & Neurology Pain Medicine
PROC: HZ42ZZZ Group Counseling for Substance Abuse Treatment, Cognitive-Behavioral (ICD-10-PCS; principal; 2023-06-14)
DX: F11.20 Opioid dependence, uncomplicated (principal); F14.20 Cocaine dependence, uncomplicated; F17.210 Nicotine dependence, cigarettes, uncomplicated; H40.9 Unspecified glaucoma; I10 Essential (primary) hypertension; E11.9 Type 2 diabetes mellitus without complications; Z79.84 Long term (current) use of oral hypoglycemic drugs; M17.11 Unilateral primary osteoarthritis, right knee; R26.89 Other abnormalities of gait and mobility; Z99.89 Dependence on other enabling machines and devices; Z56.0 Unemployment, unspecified; Z59.00 Homelessness unspecified
CPT/HCPCS: 36415; 80053; 80307; 81003; 82962; 85027; 86593; 86780; 87635; 93005; 93010; J0475